=== PATIENT | female | born 1980 | race African-American/Black ===

== ENCOUNTER 2020-03-23 17:40 | Emergency (ER) | payer OTHER, MEDICAID ==
[~2020-03-23] VITALS: Ht 175.3 cm; Wt 77.1 kg
[2020-03-23 18:01] VITALS: BP 122/81
== END 2020-03-23 18:44 | disposition left against medical advice (07) ==
LOC: EDBD 17:40 → ER 17:40
DX: S69.92XA Unspecified injury of left wrist, hand and finger(s), initial encounter (principal); M54.2 Cervicalgia; M54.9 Dorsalgia, unspecified; Z53.21 Procedure and treatment not carried out due to patient leaving prior to being seen by health care provider; V49.9XXA Car occupant (driver) (passenger) injured in unspecified traffic accident, initial encounter; Y93.89 Activity, other specified; Y92.89 Other specified places as the place of occurrence of the external cause; Y99.8 Other external cause status